=== PATIENT | female | born 1995 | race Caucasian/White ===

== ENCOUNTER 2025-04-11 17:22 | Emergency (ER) | payer BC ==
[~2025-04-11] VITALS: Ht 160 cm; Wt 79.4 kg
[~2025-04-11 17:22] MED LIST: UBRELVY50 MG PO
[2025-04-11 18:00] VITALS: PULSE 110; RESP 16; TEMP 99
[2025-04-11 19:37] LABS: BASOPHILS % 0.4 % (0.0-1.0); EOSINOPHILS % 1.2 % (0.0-6.0); LYMPHOCYTES % 29.9 % (18.0-39.1); MONOCYTES % 7.8 % (4.4-11.3); NEUTROPHILS % 60.6 % (38.7-80.0); RED CELL DISTRIBUTION WIDTH 13.3 % (11.7-14.4)
[2025-04-11 19:47] LABS: STREPTOCOCCUS GRP A ANTIGEN NEGATIVE (NEGATIVE)
[2025-04-11 19:56] LABS: CORONAVIRUS COVID-19 AG NEGATIVE (NEGATIVE)
[2025-04-11 19:58] LABS: EST GLOMERULAR FILTRATION RATE 120.0 ML/MIN (>=60)
[2025-04-11] MEDS: SODIUM CHLORIDE 0.9% 1000ML 1,000 ML IV ONE (20:01)
[2025-04-11] MEDS ORDERED: IOPAMIDOL 370 MG/ML 100 ML INFUS..BTL INJ ONE (20:08)
[2025-04-11] MEDS ORDERED: AZITHROMYCIN250 MG PO (21:41)
[2025-04-11] MEDS ORDERED: MEDROL4 M2 PO (21:41)
[2025-04-11] MEDS: IBUPROFEN 600 MG TAB PO STA (22:07)
[2025-04-11 22:08] VITALS: BP 119/74; PULSE 84; RESP 20; O2SAT 95
== END 2025-04-11 22:09 | disposition home or self-care (01) ==
LOC: ER 18:29
DX: J03.90 Acute tonsillitis, unspecified (principal); B96.89 Other specified bacterial agents as the cause of diseases classified elsewhere; Z11.52 Encounter for screening for COVID-19
CPT/HCPCS: 36415; 70491; 80053; 83518; 84702; 85025; 86308; 87070; 87428; 99284; J7030; Q9967